=== PATIENT | female | born 1995 | race Caucasian/White ===

== ENCOUNTER 2017-04-14 08:28 | Day surgery (SDC) | payer OTHER ==
--- NOTE | 2017-04-14 07:06 | PDGENHP ---
History & Physical Chief Complaint: l shoulder instability History of Present Illness: shoulder instability Relevant Physical Exam: l shoulder instability Cardiorespiratory Assessment: rrr/cta
[2017-04-14] MEDS ORDERED: BUPIVACAINE/EPI 0.5% 30 ML SDV ONE (09:05)
[2017-04-14] MEDS ORDERED: PROPOFOL 200 MG/20 ML VIAL ONE (09:07)
[2017-04-14] MEDS ORDERED: ONDANSETRON 4 MG/2 ML VIAL ONE (09:07)
[2017-04-14] MEDS ORDERED: fentaNYL 250 MCG/5 ML INJ ONE (09:07)
[2017-04-14] MEDS ORDERED: ROCURONIUM 50 MG/5 ML VIAL ONE (09:07)
[2017-04-14] MEDS ORDERED: MIDAZOLAM 2 MG/2 ML VIAL ONE (09:07)
[2017-04-14] MEDS ORDERED: DEXAMETHASONE 4 MG/ML VIAL ONE (09:07)
[2017-04-14] MEDS ORDERED: LR 1,000 ML IV ONE (09:20)
[2017-04-14] MEDS ORDERED: SCOPOLAMINE HYDROBROMIDE 1.5 MG PATCH TD ONE (10:06)
--- NOTE | 2017-04-14 10:07 | PDANEPAE ---
ANE History of Present Illness 22 year old otherwise healthy female with well controlled asthma. She waived the test. ANE Past Medical History - Cardiovascular History Hx Hypertension: No Hx Arrhythmias: No Hx Chest Pain: No Hx Coronary Artery / Peripheral Vascular Disease: No Hx CHF / Valvular Disease: No Hx Palpitations: No - Pulmonary History Hx COPD: No Hx Asthma/Reactive Airway Disease: Yes Hx Recent Upper Respiratory Infection: No Hx Oxygen in Use at Home: No - Neurologic History Hx Cerebrovascular Accident: No Hx Seizures: No Hx Dementia: No - Endocrine History Hx Diabetes: No - Renal History Hx Renal Disorders: No - Liver History Hx Hepatic Disorders: No - Neurological & Psychiatric Hx Hx Neurological and Psychiatric Disorders: No - Cancer History Hx Cancer: No - Congenital Disorder History Hx Congenital Disorders: No - GI History Hx Gastrointestinal Disorders: No - Chronic Pain History Chronic Pain: No ANE Review of Systems - Exercise capacity METS (RN): 4 METS ANE Patient History - Allergies Allergies/Adverse Reactions: No Known Allergies Allergy (Verified 04/09/17 11:48) - Home Medications Home Medications: IBUPROFEN 04/09/17 [Last Taken Unknown] Symbicort 80-4.5 Mcg Inhaler 04/09/17 [Last Taken Unknown] Ventolin Hfa Inhaler 04/09/17 [Last Taken Unknown] - NPO status NPO Since - Liquids (Date): 04/14/17 NPO Since - Liquids (Time): 07:30 NPO Since - Solids (Date): 04/13/17 NPO Since - Solids (Time): 19:00 - Smoking Hx Smoking Status: Never smoked - Family Anes Hx Family Hx Anesthesia Complications: none ANE Labs/Vital Signs - Vital Signs Blood Pressure: 111/73 Heart Rate: 56 Respiratory Rate: 18 O2 Sat (%): 98 Height: 176.53 cm Weight: 69.4 kg ANE Physical Exam - Airway Neck exam: FROM Mallampati Score: Class 1 Mouth exam: normal dental/mouth exam - Pulmonary Pulmonary: no respiratory distress - Cardiovascular Cardiovascular: regular rate and rhythym - ASA Status ASA Status: I ANE Anesthesia Plan Anesthesia Plan: general endotracheal anesthesia Urgent/Emergent Case: Claudette mitchell completed preop but documented later for safe timely pt care
[2017-04-14] MEDS ORDERED: SCOPOLAMINE HYDROBROMIDE 1.5 MG PATCH TD SCH (10:15)
[2017-04-14] MEDS ORDERED: ceFAZolin 2 GM/DEXTROSE 100 ML IV ONE (10:19)
[2017-04-14] MEDS ORDERED: CEFAZOLIN 2 GM/DEXTROSE/100 ML BAG IV ONE (10:22)
[2017-04-14] MEDS ORDERED: CALCIUM CHLORIDE 1 GM/10 ML INJ ONE (10:41)
[2017-04-14] MEDS ORDERED: THROMBIN (BOVINE) 5,000 UNIT VIAL TP ONE (10:41)
--- NOTE | 2017-04-14 12:54 | POSTOPPROG ---
Post Op Note Date of Operation: 04/14/17 Surgeon: Diana Lui Audio Visual Aide: ade Anesthesiologist: betsey Anesthesia: GET(General Endotracheal) Pre-op Diagnosis: l shoulder instability Procedure: l shoulder scope with labral reapir/capsular shift with sad Inf/Abcess present in the surg proc area at time of surgery?: No Depth: Deep Incisional (Fascial) EBL: 50-100
--- NOTE | 2017-04-14 12:58 | POSTANESTH ---
Post Anesthetic Evaluation Cardiovascular Status: Normal, Stable Respiratory Status: Normal, Stable Level of Consciousness/Mental Status: Can Participate in Eval Pain Control: Adequate, Prn Tx Ordered Nausea/Vomiting Control: Adequate, Prn Tx Ordered Complications Possibly Related to Anesthesia: None Noted
[2017-04-14] MEDS ORDERED: NALOXONE HCL 0.4 MG/ML INJ IVP PRN (13:18)
[2017-04-14] MEDS ORDERED: HYDROmorphONE/DILAUDID 1 MG/ML SYR ONE ×2 (13:25→14:41)
[2017-04-14] MEDS: HYDROmorphONE/DILAUDID 1 MG/ML SYR IVP PRN ×2 (13:29→14:44)
[2017-04-14 13:35] VITALS: TEMP 97.9
[2017-04-14] MEDS ORDERED: OXYCODONE/APAP 5/325 TAB ONE ×2 (14:00→14:49)
[2017-04-14] MEDS: OXYCODONE/APAP 5/325 TAB PO PRN ×2 (14:02→14:55)
[2017-04-14 14:26] VITALS: BP 140/71; PULSE 58; RESP 16; O2SAT 90
[2017-04-14] MEDS ORDERED: oxyCODONE IR 5 MG TAB ONE (14:42)
--- NOTE | 2017-04-15 00:39 | GOP ---
[f rep st] OPERATIVE REPORT DATE OF OPERATION: 04/14/2017 SURGEON: Diana Lui MD ELECTRICIAN SUPERVISOR SUBSTATION: Leighton Xavier, certified SA, whose presence was medically necessary. ANESTHESIA: By endotracheal intubation, plus scalene nerve block per surgeon's request. PREOPERATIVE DIAGNOSIS: Left shoulder instability. POSTOPERATIVE DIAGNOSIS: Left shoulder instability. PROCEDURE PERFORMED: Left shoulder arthroscopy with labral repair and capsular shift, with subacrom ial decompression, and debridement of the labrum. FINDINGS: INDICATIONS: This is a 22-year-old female, who originally had a snowboarding injury approximately 1 8 months ago that dislocated her shoulder. She has had subsequent dislocation since that time. She states it has gotten to be easier and easier to cause a dislocation. MRI revealed a mild Hill-Sach s lesion on the posterior portion of the humeral head, along with a soft tissue Bankart lesion anter iorly. She wishes to have surgery in order to resolve the problem. DESCRIPTION OF PROCEDURE: Patient brought to the operating room after the left side had been identi fied as correct side by the patient, nurse and physician. Once in the operating room, she was given a scalene block on the left side. She was placed under general anesthesia using endotracheal intub ation. Once asleep, she was placed in a beach chair position with the left upper extremity sterilel y prepped and draped in usual fashion using GSI solution. Once prepped and draped, incision was made over the posterolateral corner of the acromion with the c amera introduced without difficulty. Inspection of the joint revealed abundant amount of soft tissu e missing from the anterior portion of the acromion. She had a very patulous inferior capsule. The re were no changes noted to the biceps tendon or to the rotator cuff superiorly. Anteriorly along t he subscapularis tendon, she was noted to have an abundant amount of scar tissue. The arm was place d in neutral flexion and 30 degrees of external rotation, and using an in-to-out technique, an anter ior portal was made in the superolateral coracoid process with a 6 x 75 mm threaded cannula placed t hrough the anterior portal, and a 3.5 mm smooth shaver used to debride and debulk soft tissue frayin g associated with the anterior portion of the glenoid and the superior portion of the glenoid. A 2nd hole was made inferior to this, just above the level of the subscapularis with an 8 x 75 mm th readed cannula placed through the anterior portal and a bur was brought through the inferior portal in order to roughen and eburnate bone at the anterior portion of the glenoid. Centeno were then made on the glenoid with the Bovie, 4 locations of anchors, and 4 drill holes were made on the anterior p ortion of the glenoid. Tissue was gathered from the anterior inferior portion of the shoulder, and a capsular shift was done, pulling the shoulder up and medially with 4 different sets of Prolene wov en into the soft tissue. The Prolene was used to pass a #2 FiberWire through the soft tissue, and t amol Clemente labral anchors were pushed into the drill holes, pulling the inferior anterior capsule u pwards and medial, along with tightening the anterior portion of the shoulder with 4 separate anchor s. Once in place, the humeral head was moved forward and noted to have a good resistance anteriorly , and good stability of the repair. All instruments were then removed from the glenohumeral joint a fter 10 cc of Marcaine was infused into the glenohumeral joint. The camera was then introduced in the subacromial space. Soft tissue dissection was done of the acr omion. She was noted to have a short sharp inferior spur, and this was removed through the posterio r portal using an acromion bur until achieving a flat ceiling. Once completed, 20 cc of Marcaine wa s then infused into the subacromial space. All 4 portal sites were closed using 3-0 nylon suture in a [id number] type stitch. Plasma gel was then injected into the shoulder. The wounds were dr essed with Xeroform, 4 x 4, and Tegaderm. She was completely undraped in the operating room, had a shoulder immobilizer placed on the left upper extremity. She was then woken up, extubated, transfer red onto a stretcher, and sent to recovery room in good condition. /[id number]/MODL
[2017-04-17] MEDS ORDERED: PATCH REMOVAL 1 EA PATCH TD SCH (10:06)
== END 2017-04-14 15:02 | disposition home or self-care (01) ==
LOC: FSGY 08:28
PROVIDERS: ATTEND Orthopaedic Surgery
PROC: 0RQH4ZZ Repair Left Acromioclavicular Joint, Percutaneous Endoscopic Approach (ICD-10-PCS; principal; 2017-04-14 10:00)
PROC: 0RBK4ZZ Excision of Left Shoulder Joint, Percutaneous Endoscopic Approach (ICD-10-PCS; principal; 2017-04-14 10:00)
PROC: 0RC Upper Joints, Extirpation (ICD-10-PCS; principal; 2017-04-14 10:00)
DX: M25.312 Other instability, left shoulder (principal); S43.432A Superior glenoid labrum lesion of left shoulder, initial encounter; Y93.23 Activity, snow (alpine) (downhill) skiing, snowboarding, sledding, tobogganing and snow tubing
CPT/HCPCS: C1713; J0171; J0690; J1100; J1170; J2250; J2405; J2704; J3010